=== PATIENT | male | born 1970 | race Hispanic/Latino ===

== ENCOUNTER 2018-07-10 03:35 | Inpatient (IN) | payer OTHER ==
[~2018-07-10] VITALS: Ht 167.6 cm; Wt 90.1 kg
[2018-07-10 04:00] VITALS: BP 123/84
[2018-07-10] MEDS ORDERED: ONDANSETRON HCL 4 MG/2 ML VIAL IV PRN (05:30)
[2018-07-10] MEDS ORDERED: NITROGLYCERIN 0.4 MG SL TAB SL PRN (05:30)
[2018-07-10] MEDS ORDERED: ACETAMINOPHEN 325 MG TAB PO PRN (05:30)
[2018-07-10] MEDS ORDERED: CLOP75TA14 PO (05:54)
[2018-07-10] MEDS ORDERED: ASPI-1197 PO (05:54)
[2018-07-10] MEDS ORDERED: LOVA40TA2 PO (05:54)
[2018-07-10] MEDS ORDERED: FURO-151 PO (05:54)
[2018-07-10] MEDS ORDERED: LISI2.5T2 PO (05:54)
[2018-07-10] MEDS ORDERED: INSU100I24 SQ (05:54)
[2018-07-10] MEDS ORDERED: CARV6.25 PO (05:54)
[2018-07-10 05:57] LABS: BASOPHILS % (AUTO) 0.5 % (0.0-5.0); EOSINOPHILS % (AUTO) 3.4 % (0.0-8.0); HEMATOCRIT 37.3 % (42-54); LYMPHOCYTES % (AUTO) 17.6 % (21.0-51.0); MEAN CORPUSCULAR HEMOGLOBIN 27.4 pg (27.0-33.0); MEAN CORPUSCULAR HGB CONC 32.6 g/dL (32.0-36.0); MEAN CORPUSCULAR VOLUME 83.9 fL (79-99); MONOCYTES % (AUTO) 9.6 % (3.0-13.0); NEUTROPHILS % (AUTO) 68.9 % (40.0-77.0); PLATELET COUNT (AUTO) 261 K/uL (130-400); RED BLOOD CELL COUNT(AUTO) 4.44 MIL/uL (4.50-6.20); WHITE BLOOD COUNT (AUTO) 8.6 K/uL (4.8-10.8)
[2018-07-10 06:10] LABS: INR 1.09 (0.85-1.15); PARTIAL THROMBOPLASTIN TIME 27.1 SEC (26.3-35.5); PROTHROMBIN TIME 11.4 SEC (9.6-11.6)
[2018-07-10] MEDS ORDERED: LIDOCAINE HCL-MPF 1% 2ML VIAL IVP PRN (06:15)
[2018-07-10] MEDS ORDERED: MAGNESIUM 2GM PREMIX 50ML 50 ML IV PRN (06:15)
[2018-07-10] MEDS ORDERED: POTASSIUM CHLORIDE 20MEQ/100ML 100 ML IV PRN (06:15)
[2018-07-10 06:22] LABS: ALBUMIN 2.8 g/dL (3.5-5.0); BILIRUBIN,TOTAL 0.7 mg/dL (0.2-1.0); CREATININE 1.7 mg/dL (0.5-1.5); MAGNESIUM 1.7 mg/dL (1.80-2.40); TROPONIN I 0.07 ng/mL (0.00-0.06)
[2018-07-10 06:29] LABS: HEMOGLOBIN A1C 8.4 % (4.0-6.0)
[2018-07-10] MEDS ORDERED: DEXTROSE 50%-WATER 50 ML DISP.SYRIN IV PRN (06:30)
[2018-07-10] MEDS ORDERED: GLUCAGON 1MG KIT 1 MG ML IM PRN (06:30)
[2018-07-10] MEDS ORDERED: MAGNESIUM 2GM PREMIX 50ML 50 ML IV ONE (06:36)
[2018-07-10 07:00] VITALS: BP 136/83
[2018-07-10] MEDS: IPRATROPIUM/ALBUTEROL SULFATE 3 ML SOLUTION IH SCH ×5 (07:11→22:03)
[2018-07-10] MEDS: INSULIN HUMULIN R 100 UNIT/ML 3ML SQ SCH ×4 (07:30→21:36)
[2018-07-10] MEDS: PANTOPRAZOLE SODIUM 40 MG TABLET.DR PO SCH (08:34)
[2018-07-10 11:00] VITALS: BP 114/75
[2018-07-10 16:00] VITALS: BP 114/79
[2018-07-10 19:48] VITALS: BP 116/79
[2018-07-10] MEDS: ATORVASTATIN CALCIUM 10 MG TABLET PO SCH (21:33)
[2018-07-10] MEDS: CARVEDILOL 6.25 MG TABLET PO SCH (21:34)
[2018-07-10] MEDS: ASPIRIN 81MG TAB.CHEW PO SCH (21:34)
[2018-07-10 23:39] VITALS: BP 117/78
[2018-07-11] MEDS: IPRATROPIUM/ALBUTEROL SULFATE 3 ML SOLUTION IH SCH ×6 (03:18→21:54)
[2018-07-11 04:13] VITALS: BP 119/89
[2018-07-11 07:00] VITALS: BP 125/85
[2018-07-11] MEDS: INSULIN HUMULIN R 100 UNIT/ML 3ML SQ SCH ×4 (07:07→21:00)
[2018-07-11] MEDS ORDERED: INSULIN DEGLUDEC 14 UNIT SQ SCH (09:00)
[2018-07-11] MEDS: FUROSEMIDE 40 MG TABLET PO SCH (09:17)
[2018-07-11] MEDS: PANTOPRAZOLE SODIUM 40 MG TABLET.DR PO SCH (09:17)
[2018-07-11] MEDS: CLOPIDOGREL BISULFATE 75 MG TAB PO SCH (09:17)
[2018-07-11] MEDS: LISINOPRIL 2.5 MG TABLET PO SCH (09:17)
[2018-07-11] MEDS: CARVEDILOL 6.25 MG TABLET PO SCH ×2 (09:20→21:00)
[2018-07-11 09:52] LABS: BASOPHILS % (AUTO) 0.7 % (0.0-5.0); EOSINOPHILS % (AUTO) 5.3 % (0.0-8.0); HEMATOCRIT 37.8 % (42-54); MEAN CORPUSCULAR HEMOGLOBIN 28.1 pg (27.0-33.0); MEAN CORPUSCULAR HGB CONC 33.2 g/dL (32.0-36.0); MEAN CORPUSCULAR VOLUME 84.5 fL (79-99); MONOCYTES % (AUTO) 9.6 % (3.0-13.0); NEUTROPHILS % (AUTO) 66.4 % (40.0-77.0); PLATELET COUNT (AUTO) 272 K/uL (130-400); RED BLOOD CELL COUNT(AUTO) 4.47 MIL/uL (4.50-6.20); RED CELL DISTRIBUTION WIDTH 14.3 % (11.0-15.5); WHITE BLOOD COUNT (AUTO) 8.4 K/uL (4.8-10.8)
[2018-07-11 10:03] LABS: ALBUMIN 2.7 g/dL (3.5-5.0); BILIRUBIN,TOTAL 0.6 mg/dL (0.2-1.0); CREATININE 1.5 mg/dL (0.5-1.5); POTASSIUM 3.9 mmol/L (3.5-5.1); TOTAL PROTEIN, SERUM 7.8 g/dL (6.0-8.3)
[2018-07-11 10:07] LABS: INR 1.04 (0.85-1.15); PARTIAL THROMBOPLASTIN TIME 26.7 SEC (26.3-35.5); PROTHROMBIN TIME 10.9 SEC (9.6-11.6)
[2018-07-11 11:00] VITALS: BP 128/91
[2018-07-11] MEDS ORDERED: SODIUM CHLORIDE 0.9% 500ML 500 ML IV SCH (12:21)
[2018-07-11 16:00] VITALS: BP 107/78
[2018-07-11 19:31] VITALS: BP 132/95
[2018-07-11] MEDS: ASPIRIN 81MG TAB.CHEW PO SCH (21:00)
[2018-07-11] MEDS: ATORVASTATIN CALCIUM 10 MG TABLET PO SCH (21:00)
[2018-07-11 23:27] VITALS: BP 100/65
[2018-07-12] VITALS (11 sets, daily range): BP systolic 102–129; BP diastolic 71–93
[2018-07-12] MEDS: IPRATROPIUM/ALBUTEROL SULFATE 3 ML SOLUTION IH SCH ×6 (02:31→22:00)
[2018-07-12 04:18] LABS: HEMATOCRIT 36.2 % (42-54); MEAN CORPUSCULAR HEMOGLOBIN 27.4 pg (27.0-33.0); MEAN CORPUSCULAR HGB CONC 32.5 g/dL (32.0-36.0); MEAN CORPUSCULAR VOLUME 84.1 fL (79-99); PLATELET COUNT (AUTO) 249 K/uL (130-400); RED CELL DISTRIBUTION WIDTH 14.2 % (11.0-15.5); WHITE BLOOD COUNT (AUTO) 8.4 K/uL (4.8-10.8)
[2018-07-12 04:22] LABS: CREATININE 1.6 mg/dL (0.5-1.5); POTASSIUM 3.8 mmol/L (3.5-5.1)
[2018-07-12 04:36] LABS: B-TYPE NATRIURETIC PEPTIDE 900 pg/mL (0-100)
[2018-07-12] MEDS: INSULIN HUMULIN R 100 UNIT/ML 3ML SQ SCH ×4 (05:25→20:29)
[2018-07-12] MEDS: CARVEDILOL 6.25 MG TABLET PO SCH ×2 (09:33→20:25)
[2018-07-12] MEDS: FUROSEMIDE 40 MG TABLET PO SCH (09:33)
[2018-07-12] MEDS: PANTOPRAZOLE SODIUM 40 MG TABLET.DR PO SCH (09:33)
[2018-07-12] MEDS: LISINOPRIL 2.5 MG TABLET PO SCH (09:33)
[2018-07-12] MEDS: CLOPIDOGREL BISULFATE 75 MG TAB PO SCH (10:02)
[2018-07-12] MEDS ORDERED: LIDOCAINE HCL 2% 20ML ONE (10:43)
[2018-07-12] MEDS ORDERED: BIVALIRUDIN 250 MG/VIAL IV ONE (10:43)
[2018-07-12] MEDS ORDERED: NITROGLYCERIN 5 MG/ML 10 ML VIAL IV ONE (10:43)
[2018-07-12] MEDS ORDERED: IOHEXOL-350 50ML VIAL IV ONE (10:44)
[2018-07-12] MEDS ORDERED: IOHEXOL 350 MG/ML 100ML INFUS..BTL IV ONE (10:44)
[2018-07-12] MEDS ORDERED: MIDAZOLAM HCL 1 MG/ML 2ML VIAL ONE (11:19)
[2018-07-12] MEDS: SODIUM CHLORIDE 0.9% 10 ML VIAL IVP SCH ×2 (12:15→20:28)
[2018-07-12] MEDS ORDERED: PHARMACY COMMUNICATION MISC SCH (12:15)
[2018-07-12] MEDS: ATORVASTATIN CALCIUM 10 MG TABLET PO SCH (20:24)
[2018-07-12] MEDS: ASPIRIN 81MG TAB.CHEW PO SCH (20:25)
[2018-07-13] MEDS: IPRATROPIUM/ALBUTEROL SULFATE 3 ML SOLUTION IH SCH ×3 (02:00→09:57)
[2018-07-13 03:56] VITALS: BP 109/78
[2018-07-13 04:10] LABS: BASOPHILS % (AUTO) 0.5 % (0.0-5.0); EOSINOPHILS % (AUTO) 6.7 % (0.0-8.0); HEMATOCRIT 36.7 % (42-54); LYMPHOCYTES % (AUTO) 21.9 % (21.0-51.0); MEAN CORPUSCULAR HEMOGLOBIN 27.3 pg (27.0-33.0); MEAN CORPUSCULAR HGB CONC 32.5 g/dL (32.0-36.0); MEAN CORPUSCULAR VOLUME 84.2 fL (79-99); MONOCYTES % (AUTO) 10.7 % (3.0-13.0); NEUTROPHILS % (AUTO) 60.2 % (40.0-77.0); PLATELET COUNT (AUTO) 270 K/uL (130-400); RED BLOOD CELL COUNT(AUTO) 4.36 MIL/uL (4.50-6.20); RED CELL DISTRIBUTION WIDTH 13.8 % (11.0-15.5); WHITE BLOOD COUNT (AUTO) 8.2 K/uL (4.8-10.8)
[2018-07-13 04:26] LABS: CREATININE 1.5 mg/dL (0.5-1.5); POTASSIUM 3.6 mmol/L (3.5-5.1)
[2018-07-13] MEDS: SODIUM CHLORIDE 0.9% 10 ML VIAL IVP SCH ×3 (04:51→20:54)
[2018-07-13] MEDS: INSULIN HUMULIN R 100 UNIT/ML 3ML SQ SCH ×4 (06:14→21:59)
[2018-07-13 07:00] VITALS: BP 103/71
[2018-07-13] MEDS: PANTOPRAZOLE SODIUM 40 MG TABLET.DR PO SCH (08:57)
[2018-07-13] MEDS: CARVEDILOL 6.25 MG TABLET PO SCH ×2 (08:57→20:55)
[2018-07-13 11:00] VITALS: BP 124/87
[2018-07-13] MEDS ORDERED: IPRATROPIUM/ALBUTEROL SULFATE 3 ML SOLUTION IH PRN (11:45)
[2018-07-13 16:00] VITALS: BP 96/86
[2018-07-13 19:26] VITALS: BP 114/80
[2018-07-13] MEDS: ASPIRIN 81MG TAB.CHEW PO SCH (20:55)
[2018-07-13] MEDS: ATORVASTATIN CALCIUM 10 MG TABLET PO SCH (20:55)
[2018-07-13 23:17] VITALS: BP 102/72
[2018-07-14 03:08] VITALS: BP 113/79
[2018-07-14] MEDS: SODIUM CHLORIDE 0.9% 10 ML VIAL IVP SCH ×3 (04:18→20:15)
[2018-07-14 04:24] LABS: BASOPHILS % (AUTO) 0.5 % (0.0-5.0); EOSINOPHILS % (AUTO) 5.7 % (0.0-8.0); HEMATOCRIT 36.3 % (42-54); LYMPHOCYTES % (AUTO) 22.5 % (21.0-51.0); MEAN CORPUSCULAR HGB CONC 32.1 g/dL (32.0-36.0); MEAN CORPUSCULAR VOLUME 84.2 fL (79-99); MONOCYTES % (AUTO) 11.3 % (3.0-13.0); PLATELET COUNT (AUTO) 243 K/uL (130-400); RED BLOOD CELL COUNT(AUTO) 4.31 MIL/uL (4.50-6.20); RED CELL DISTRIBUTION WIDTH 13.9 % (11.0-15.5); WHITE BLOOD COUNT (AUTO) 7.5 K/uL (4.8-10.8)
[2018-07-14 04:42] LABS: CREATININE 1.7 mg/dL (0.5-1.5); POTASSIUM 3.7 mmol/L (3.5-5.1)
[2018-07-14] MEDS: INSULIN HUMULIN R 100 UNIT/ML 3ML SQ SCH ×4 (06:00→21:00)
[2018-07-14 07:47] VITALS: BP 122/88
[2018-07-14] MEDS: PANTOPRAZOLE SODIUM 40 MG TABLET.DR PO SCH (10:23)
[2018-07-14] MEDS: FUROSEMIDE 40 MG TABLET PO SCH (10:23)
[2018-07-14] MEDS: LISINOPRIL 2.5 MG TABLET PO SCH (10:23)
[2018-07-14] MEDS: CARVEDILOL 6.25 MG TABLET PO SCH ×2 (10:23→20:47)
[2018-07-14 11:52] VITALS: BP 107/79
[2018-07-14 16:58] VITALS: BP 110/78
[2018-07-14 19:00] VITALS: BP 129/86
[2018-07-14] MEDS: ASPIRIN 81MG TAB.CHEW PO SCH (20:47)
[2018-07-14] MEDS: ATORVASTATIN CALCIUM 10 MG TABLET PO SCH (20:47)
[2018-07-14 23:00] VITALS: BP 95/61
[2018-07-15] VITALS (18 sets, daily range): BP systolic 95–177; BP diastolic 58–87
[2018-07-15 03:22] LABS: HEMATOCRIT 34.7 % (42-54); MEAN CORPUSCULAR HEMOGLOBIN 27.9 pg (27.0-33.0); MEAN CORPUSCULAR VOLUME 84.6 fL (79-99); PLATELET COUNT (AUTO) 231 K/uL (130-400); RED CELL DISTRIBUTION WIDTH 14.1 % (11.0-15.5); WHITE BLOOD COUNT (AUTO) 7.1 K/uL (4.8-10.8)
[2018-07-15 03:31] LABS: CREATININE 1.5 mg/dL (0.5-1.5); MAGNESIUM 1.8 mg/dL (1.80-2.40); POTASSIUM 3.5 mmol/L (3.5-5.1)
[2018-07-15] MEDS: SODIUM CHLORIDE 0.9% 10 ML VIAL IVP SCH ×3 (04:15→20:15)
[2018-07-15 06:27] LABS: INR 1.01 (0.85-1.15); PARTIAL THROMBOPLASTIN TIME 27.5 SEC (26.3-35.5); PROTHROMBIN TIME 10.6 SEC (9.6-11.6)
[2018-07-15] MEDS: INSULIN HUMULIN R 100 UNIT/ML 3ML SQ SCH ×2 (06:49→11:30)
[2018-07-15] MEDS ORDERED: CEFUROXIME SODIUM 1.5 GM VIAL IVP PRN (07:00)
[2018-07-15] MEDS: LISINOPRIL 2.5 MG TABLET PO SCH (09:00)
[2018-07-15] MEDS: FUROSEMIDE 40 MG TABLET PO SCH (09:00)
[2018-07-15] MEDS: PANTOPRAZOLE SODIUM 40 MG TABLET.DR PO SCH (09:00)
[2018-07-15] MEDS: CARVEDILOL 6.25 MG TABLET PO SCH (09:23)
[2018-07-15] MEDS ORDERED: SODIUM CHLORIDE 0.9% 1000ML 1,000 ML IV ONE ×2 (10:48→15:13)
[2018-07-15] MEDS ORDERED: CEFUROXIME SODIUM 1.5 GM VIAL ONE (10:49)
[2018-07-15] MEDS ORDERED: PAPAVERINE HCL 30 MG/ML 2ML VIAL ONE (11:39)
[2018-07-15] MEDS ORDERED: BACITRACIN 50,000 UNIT VIAL ONE (11:39)
[2018-07-15] MEDS ORDERED: AMIODARONE HCL 50 MG/ML 3 ML VIAL ONE (11:42)
[2018-07-15] MEDS ORDERED: SODIUM BICARB 50MEQ 50ML VIAL ONE ×2 (11:42→12:03)
[2018-07-15] MEDS ORDERED: NOREPINEPHRINE BITARTRATE 1 MG/1 ML ML IV ONE ×2 (11:43→12:03)
[2018-07-15] MEDS ORDERED: LIDOCAINE PF 2% 5ML ABBOJECT ONE ×2 (12:02→12:50)
[2018-07-15] MEDS ORDERED: HEPARIN SODIUM 1000UNIT/ML 10ML VIAL ONE ×2 (12:02→12:34)
[2018-07-15] MEDS ORDERED: PROTAMINE SULFATE 10 MG/ML 25ML VIAL IV ONE (12:02)
[2018-07-15] MEDS ORDERED: EPINEPHRINE 1 MG/ML AMPULE ONE (12:02)
[2018-07-15] MEDS ORDERED: ESMOLOL HCL 10 MG/ML 10 ML VIAL ONE (12:02)
[2018-07-15] MEDS ORDERED: MIDAZOLAM HCL 1 MG/ML 5ML VIAL ONE (12:03)
[2018-07-15] MEDS ORDERED: PROPOFOL 10 MG/ML 20ML VIAL IV ONE (12:03)
[2018-07-15] MEDS ORDERED: FENTANYL CITRATE PF 50 MCG/1 ML 20ML VIAL IJ ONE ×3 (12:03→15:04)
[2018-07-15] MEDS ORDERED: AMINOCAPROIC ACID 250 MG/ML 20 ML VIAL IV ONE (12:03)
[2018-07-15] MEDS ORDERED: ROCURONIUM 10MG/1ML SYR 10 MG/ML ML ONE ×4 (12:04→15:10)
[2018-07-15] MEDS ORDERED: KETAMINE 50MG/ML SYRINGE 50 MG/ML DISP.SYRIN IV ONE (12:04)
[2018-07-15 12:49] LABS: ABG HCO3 23.1 mmol/L (21.0-28.0); ABG OXYGEN SATURATION 99.2 % (95.0-99.0); ABG PCO2 32 mmHg (35-48)
[2018-07-15] MEDS ORDERED: VASOPRESSIN 20 UNITS/ML 1ML VIAL ONE (12:49)
[2018-07-15 13:30] LABS: ABG OXYGEN SATURATION 64.2 % (95.0-99.0); BASE EXCESS,VENOUS BLOOD GAS 2.4 (-2.0-3.0); HCO3,VENOUS BLOOD GAS 27.6 (21.0-28.0); PCO2,VENOUS BLOOD GAS 45 (35-48); PH,VENOUS BLOOD GAS 7.406 (7.350-7.450)
[2018-07-15 14:29] LABS: ABG BASE EXCESS 0.2 mmol/L (-2.0-3.0); ABG HCO3 23.1 mmol/L (21.0-28.0); ABG OXYGEN SATURATION 99.3 % (95.0-99.0); ABG PCO2 32 mmHg (35-48)
[2018-07-15] MEDS ORDERED: INSULIN HUMULIN R 100 UNIT/ML 3ML ONE (14:56)
[2018-07-15] MEDS ORDERED: ROCURONIUM BROMIDE 10MG/1ML 5ML VL ONE (15:09)
[2018-07-15] MEDS ORDERED: POTASSIUM PHOS 15 mMOL+NS250ML 250 ML IV PRN (15:15)
[2018-07-15] MEDS ORDERED: AMINOCAPROIC ACID 15,000 MG in SODIUM CHLORIDE 0.9% 250 ML IV SCH (15:15)
[2018-07-15] MEDS ORDERED: NOREPINEPHRINE 4MG/NS 250ML 250 ML IV PRN (15:15)
[2018-07-15] MEDS ORDERED: PROPOFOL 1000 MG/100 ML 100 ML IV PRN (15:15)
[2018-07-15] MEDS ORDERED: MORPHINE SULFATE 4 MG/1ML SYG IV PRN (15:15)
[2018-07-15] MEDS ORDERED: ACETAMINOPHEN 650 MG SUPPOSITORY RC PRN (15:15)
[2018-07-15] MEDS ORDERED: MAGNESIUM 2GM PREMIX 50ML 50 ML IV PRN (15:15)
[2018-07-15] MEDS ORDERED: ACETAMINOPHEN 325 MG TAB PO PRN (15:15)
[2018-07-15] MEDS ORDERED: SODIUM CHLORIDE 0.9% 250 ML IV PRN (15:15)
[2018-07-15] MEDS ORDERED: SODIUM CHLORIDE 0.9% 10 ML VIAL IVP PRN (15:15)
[2018-07-15] MEDS ORDERED: ALBUMIN (HUMAN) 5% 250 ML IV PRN (15:15)
[2018-07-15] MEDS ORDERED: GLUCAGON 1MG KIT 1 MG ML IM PRN (15:15)
[2018-07-15] MEDS ORDERED: SODIUM CHLORIDE 0.9% 1000ML 1,000 ML IV SCH (15:15)
[2018-07-15] MEDS ORDERED: INSULIN REGULAR, HUMAN 3ML 100 UNIT in SODIUM CHLORIDE 0.9% 99 ML IV SCH ×2 (15:15)
[2018-07-15] MEDS ORDERED: ONDANSETRON HCL 4 MG/2 ML VIAL IV PRN (15:15)
[2018-07-15] MEDS ORDERED: NITROGLYCERIN 50 MG/D5% WATER 250 BOT IV SCH (15:15)
[2018-07-15] MEDS ORDERED: DEXTROSE 50%-WATER 50 ML DISP.SYRIN IV PRN (15:15)
[2018-07-15] MEDS ORDERED: EPINEPHRINE 8 MG in SODIUM CHLORIDE 0.9% 250 ML IV PRN (15:15)
[2018-07-15] MEDS ORDERED: CALCIUM GLUCONATE 1 GM in SODIUM CHLORIDE 0.9% 50 ML IV PRN (15:15)
[2018-07-15 15:23] LABS: ABG BASE EXCESS 0.4 mmol/L (-2.0-3.0); ABG HCO3 22.9 mmol/L (21.0-28.0); ABG OXYGEN SATURATION 98.9 % (95.0-99.0); ABG PCO2 30 mmHg (35-48)
[2018-07-15 16:27] LABS: BASE EXCESS,VENOUS BLOOD GAS -1.5 (-2.0-3.0); HCO3,VENOUS BLOOD GAS 22.3 (21.0-28.0); PCO2,VENOUS BLOOD GAS 34 (35-48); PH,VENOUS BLOOD GAS 7.429 (7.350-7.450)
[2018-07-15 16:45] LABS: ABG BASE EXCESS -0.5 mmol/L (-2.0-3.0); ABG HCO3 23.2 mmol/L (21.0-28.0); ABG PCO2 35 mmHg (35-48)
[2018-07-15 16:45] LABS: HEMATOCRIT 32.6 % (42-54); MEAN CORPUSCULAR HEMOGLOBIN 27.8 pg (27.0-33.0); MEAN CORPUSCULAR HGB CONC 33.1 g/dL (32.0-36.0); PLATELET COUNT (AUTO) 240 K/uL (130-400); RED BLOOD CELL COUNT(AUTO) 3.88 MIL/uL (4.50-6.20); RED CELL DISTRIBUTION WIDTH 14.1 % (11.0-15.5); WHITE BLOOD COUNT (AUTO) 18.3 K/uL (4.8-10.8)
[2018-07-15] MEDS: POTASSIUM CHLORIDE 20MEQ/100ML 100 ML IV PRN ×3 (16:53→20:34)
[2018-07-15] MEDS: SODIUM BICARB 50MEQ 50ML VIAL IV PRN ×3 (16:55→23:18)
[2018-07-15 16:57] LABS: CREATININE 1.4 mg/dL (0.5-1.5); MAGNESIUM 1.5 mg/dL (1.80-2.40); PHOSPHORUS 1.9 mg/dL (2.5-4.9)
[2018-07-15] MEDS: CLINDAMYCIN 900 MG/D5% WATER 50 ML IV SCH (17:18)
[2018-07-15 18:11] LABS: ABG BASE EXCESS -0.5 mmol/L (-2.0-3.0); ABG HCO3 21.4 mmol/L (21.0-28.0); ABG OXYGEN SATURATION 89.3 % (95.0-99.0); ABG PCO2 29 mmHg (35-48)
[2018-07-15 19:26] LABS: ABG BASE EXCESS 4.5 mmol/L (-2.0-3.0); ABG PCO2 33 mmHg (35-48)
[2018-07-15] MEDS: CARVEDILOL 3.125 MG TABLET PO SCH (19:58)
[2018-07-15] MEDS: ATORVASTATIN CALCIUM 40 MG TABLET PO SCH (19:59)
[2018-07-15 21:04] LABS: ABG BASE EXCESS 2.7 mmol/L (-2.0-3.0); ABG HCO3 24.7 mmol/L (21.0-28.0); ABG OXYGEN SATURATION 98.2 % (95.0-99.0); ABG PCO2 31 mmHg (35-48)
[2018-07-15] MEDS: SODIUM CHLORIDE 0.9% 500ML 500 ML IV SCH (22:08)
[2018-07-15 23:07] LABS: ABG BASE EXCESS -0.4 mmol/L (-2.0-3.0); ABG HCO3 23.7 mmol/L (21.0-28.0); ABG OXYGEN SATURATION 95.4 % (95.0-99.0); ABG PCO2 37 mmHg (35-48)
[2018-07-15] MEDS: IPRATROPIUM/ALBUTEROL SULFATE 3 ML SOLUTION IH SCH (23:13)
[2018-07-15] MEDS: MORPHINE SULFATE 2 MG/ML 1ML SYG IV PRN (23:18)
[2018-07-16] VITALS (24 sets, daily range): BP systolic 94–149; BP diastolic 60–98
[2018-07-16] MEDS: CEFUROXIME SODIUM 1.5 GM VIAL IVP SCH ×2 (00:30→10:53)
[2018-07-16 00:44] LABS: ABG BASE EXCESS 1.1 mmol/L (-2.0-3.0); ABG HCO3 25.4 mmol/L (21.0-28.0); ABG OXYGEN SATURATION 93.4 % (95.0-99.0); ABG PCO2 39 mmHg (35-48)
[2018-07-16] MEDS ORDERED: FUROSEMIDE 10 MG/ML 2ML VIAL ONE (00:52)
[2018-07-16] MEDS: CLINDAMYCIN 900 MG/D5% WATER 50 ML IV SCH ×3 (00:54→16:58)
[2018-07-16] MEDS: FUROSEMIDE 10 MG/ML 2ML VIAL IV SCH ×3 (01:00→21:10)
[2018-07-16 01:07] LABS: MAGNESIUM 1.8 mg/dL (1.80-2.40); POTASSIUM 4.1 mmol/L (3.5-5.1)
[2018-07-16] MEDS: MORPHINE SULFATE 2 MG/ML 1ML SYG IV PRN ×3 (02:15→07:14)
[2018-07-16] MEDS: SODIUM CHLORIDE 0.9% 10 ML VIAL IVP SCH ×3 (03:47→20:15)
[2018-07-16 04:13] LABS: HEMATOCRIT 34.2 % (42-54); MEAN CORPUSCULAR HEMOGLOBIN 27.1 pg (27.0-33.0); MEAN CORPUSCULAR HGB CONC 32.2 g/dL (32.0-36.0); MEAN CORPUSCULAR VOLUME 84.1 fL (79-99); PLATELET COUNT (AUTO) 199 K/uL (130-400); RED BLOOD CELL COUNT(AUTO) 4.06 MIL/uL (4.50-6.20); WHITE BLOOD COUNT (AUTO) 16.7 K/uL (4.8-10.8)
[2018-07-16 04:24] LABS: INR 1.09 (0.85-1.15); PROTHROMBIN TIME 11.4 SEC (9.6-11.6)
[2018-07-16 04:26] LABS: CREATININE 1.5 mg/dL (0.5-1.5); MAGNESIUM 2.2 mg/dL (1.80-2.40); PHOSPHORUS 4.7 mg/dL (2.5-4.9)
[2018-07-16 05:14] LABS: ABG BASE EXCESS 0.4 mmol/L (-2.0-3.0); ABG HCO3 23.8 mmol/L (21.0-28.0); ABG OXYGEN SATURATION 98.7 % (95.0-99.0); ABG PCO2 35 mmHg (35-48)
[2018-07-16] MEDS: SODIUM CHLORIDE 0.9% 500ML 500 ML IV SCH (05:15)
[2018-07-16] MEDS: IPRATROPIUM/ALBUTEROL SULFATE 3 ML SOLUTION IH SCH ×4 (06:55→23:12)
[2018-07-16] MEDS: CARVEDILOL 3.125 MG TABLET PO SCH (07:38)
[2018-07-16] MEDS ORDERED: PHARMACY COMMUNICATION MISC SCH ×2 (07:45→19:30)
[2018-07-16] MEDS: ASPIRIN 325MG EC TAB 325 MG TABLET.DR PO SCH (07:56)
[2018-07-16 08:21] LABS: ABG BASE EXCESS -0.2 mmol/L (-2.0-3.0); ABG HCO3 23.9 mmol/L (21.0-28.0); ABG OXYGEN SATURATION 91.1 % (95.0-99.0); ABG PCO2 38 mmHg (35-48)
[2018-07-16] MEDS ORDERED: PANTOPRAZOLE 40 MG/VIAL IV SCH (09:00)
[2018-07-16] MEDS: PANTOPRAZOLE SODIUM 40 MG TABLET.DR PO SCH (09:00)
[2018-07-16 11:36] LABS: ABG BASE EXCESS 4.4 mmol/L (-2.0-3.0); ABG HCO3 27.8 mmol/L (21.0-28.0); ABG OXYGEN SATURATION 95.4 % (95.0-99.0); ABG PCO2 37 mmHg (35-48)
[2018-07-16] MEDS: TRAMADOL HCL 50 MG TABLET PO PRN ×3 (14:05→18:58)
[2018-07-16 15:21] LABS: CREATININE 1.6 mg/dL (0.5-1.5)
[2018-07-16] MEDS ORDERED: ATORVASTATIN CALCIUM 20 MG TABLET PO SCH (21:00)
[2018-07-16] MEDS: ATORVASTATIN CALCIUM 40 MG TABLET PO SCH (21:10)
[2018-07-17] VITALS (22 sets, daily range): BP systolic 99–150; BP diastolic 63–97
[2018-07-17] MEDS: CEFUROXIME SODIUM 1.5 GM VIAL IVP SCH (00:29)
[2018-07-17] MEDS: FUROSEMIDE 10 MG/ML 2ML VIAL IV SCH ×4 (01:00→21:19)
[2018-07-17] MEDS: TRAMADOL HCL 50 MG TABLET PO PRN (02:24)
[2018-07-17] MEDS: CLINDAMYCIN 900 MG/D5% WATER 50 ML IV SCH ×3 (02:24→17:52)
[2018-07-17 04:06] LABS: ABG BASE EXCESS -0.7 mmol/L (-2.0-3.0); ABG HCO3 23.3 mmol/L (21.0-28.0); ABG OXYGEN SATURATION 94.5 % (95.0-99.0); ABG PCO2 37 mmHg (35-48)
[2018-07-17 04:11] LABS: HEMATOCRIT 32.9 % (42-54); MEAN CORPUSCULAR HEMOGLOBIN 27.4 pg (27.0-33.0); MEAN CORPUSCULAR HGB CONC 32.4 g/dL (32.0-36.0); MEAN CORPUSCULAR VOLUME 84.6 fL (79-99); PLATELET COUNT (AUTO) 189 K/uL (130-400); RED BLOOD CELL COUNT(AUTO) 3.89 MIL/uL (4.50-6.20); WHITE BLOOD COUNT (AUTO) 15.9 K/uL (4.8-10.8)
[2018-07-17] MEDS: SODIUM CHLORIDE 0.9% 10 ML VIAL IVP SCH ×3 (04:15→21:19)
[2018-07-17 04:17] LABS: CREATININE 1.7 mg/dL (0.5-1.5); MAGNESIUM 2.2 mg/dL (1.80-2.40); POTASSIUM 3.8 mmol/L (3.5-5.1)
[2018-07-17] MEDS: IPRATROPIUM/ALBUTEROL SULFATE 3 ML SOLUTION IH SCH ×4 (07:38→23:23)
[2018-07-17] MEDS ORDERED: CARVEDILOL 3.125 MG TABLET PO SCH ×2 (09:00→11:15)
[2018-07-17] MEDS: ASPIRIN 325MG EC TAB 325 MG TABLET.DR PO SCH (09:40)
[2018-07-17] MEDS: PANTOPRAZOLE SODIUM 40 MG TABLET.DR PO SCH (09:40)
[2018-07-17] MEDS: POTASSIUM CHLORIDE 20MEQ/100ML 100 ML IV PRN (09:56)
[2018-07-17] MEDS: INSULIN HUMULIN R 100 UNIT/ML 3ML SQ SCH ×3 (14:59→21:31)
[2018-07-17] MEDS ORDERED: INSULIN HUMULIN R 100 UNIT/ML 3ML SQ SCH (16:30)
[2018-07-17] MEDS: ATORVASTATIN CALCIUM 40 MG TABLET PO SCH (21:23)
[2018-07-17] MEDS: CARVEDILOL 6.25 MG TABLET PO SCH (21:23)
[2018-07-17] MEDS: ENOXAPARIN SODIUM 30 MG/0.3 ML SQ SCH (21:32)
[2018-07-17] MEDS: LOSARTAN 50 MG TABLET PO SCH (22:00)
[2018-07-18 00:19] VITALS: BP 105/71
[2018-07-18] MEDS: CLINDAMYCIN 900 MG/D5% WATER 50 ML IV SCH ×4 (01:00→16:46)
[2018-07-18 03:30] VITALS: BP 105/68
[2018-07-18 04:02] LABS: MEAN CORPUSCULAR HEMOGLOBIN 26.9 pg (27.0-33.0); MEAN CORPUSCULAR HGB CONC 31.8 g/dL (32.0-36.0); MEAN CORPUSCULAR VOLUME 84.6 fL (79-99); PLATELET COUNT (AUTO) 161 K/uL (130-400); RED BLOOD CELL COUNT(AUTO) 3.55 MIL/uL (4.50-6.20); RED CELL DISTRIBUTION WIDTH 14.1 % (11.0-15.5); WHITE BLOOD COUNT (AUTO) 13.3 K/uL (4.8-10.8)
[2018-07-18 04:07] LABS: CREATININE 1.5 mg/dL (0.5-1.5); POTASSIUM 3.8 mmol/L (3.5-5.1)
[2018-07-18] MEDS: SODIUM CHLORIDE 0.9% 10 ML VIAL IVP SCH ×3 (04:15→21:42)
[2018-07-18] MEDS: INSULIN HUMULIN R 100 UNIT/ML 3ML SQ SCH ×4 (06:51→21:00)
[2018-07-18 07:00] VITALS: BP 106/74
[2018-07-18] MEDS: IPRATROPIUM/ALBUTEROL SULFATE 3 ML SOLUTION IH SCH ×4 (07:20→19:05)
[2018-07-18] MEDS: PANTOPRAZOLE SODIUM 40 MG TABLET.DR PO SCH (08:53)
[2018-07-18] MEDS: ASPIRIN 325MG EC TAB 325 MG TABLET.DR PO SCH (08:53)
[2018-07-18] MEDS: CARVEDILOL 6.25 MG TABLET PO SCH (08:54)
[2018-07-18] MEDS: FUROSEMIDE 10 MG/ML 2ML VIAL IV SCH ×2 (08:55→21:40)
[2018-07-18] MEDS: ENOXAPARIN SODIUM 30 MG/0.3 ML SQ SCH (09:02)
[2018-07-18] MEDS: TRAMADOL HCL 50 MG TABLET PO PRN ×2 (10:37→15:57)
[2018-07-18 11:00] VITALS: BP 98/64
[2018-07-18 11:08] LABS: % IRON SATURATION 4.9 % (30-44)
[2018-07-18 16:00] VITALS: BP 102/73
[2018-07-18] MEDS ORDERED: LIDOCAINE HCL-MPF 1% 2ML VIAL IVP PRN (16:45)
[2018-07-18] MEDS ORDERED: POTASSIUM CHLORIDE 10% ELIXIR 20 MEQ/15 ML UDCUP PO PRN (16:45)
[2018-07-18] MEDS: POTASSIUM CHLORIDE 20 MEQ ERTAB PO PRN (16:52)
[2018-07-18 19:26] VITALS: BP 92/64
[2018-07-18] MEDS ORDERED: POTASSIUM CHLORIDE 10 MEQ/TAB.SA PO ONE ×2 (21:34→21:35)
[2018-07-18] MEDS: ATORVASTATIN CALCIUM 40 MG TABLET PO SCH (21:40)
[2018-07-18] MEDS: LOSARTAN 50 MG TABLET PO SCH (21:45)
[2018-07-18] MEDS ORDERED: IRON SUCROSE COMPLEX 100 MG in SODIUM CHLORIDE 0.9% 100 ML IV SCH (23:30)
[2018-07-19 00:19] VITALS: BP 107/65
[2018-07-19] MEDS: IPRATROPIUM/ALBUTEROL SULFATE 3 ML SOLUTION IH SCH ×5 (00:19→23:08)
[2018-07-19] MEDS: CLINDAMYCIN 900 MG/D5% WATER 50 ML IV SCH ×3 (00:25→16:36)
[2018-07-19] MEDS: TRAMADOL HCL 50 MG TABLET PO PRN ×3 (00:26→17:45)
[2018-07-19] MEDS: CARVEDILOL 6.25 MG TABLET PO SCH ×3 (00:32→20:34)
[2018-07-19 03:47] VITALS: BP 96/69
[2018-07-19 04:10] LABS: HEMATOCRIT 27.4 % (42-54); MEAN CORPUSCULAR HEMOGLOBIN 27.9 pg (27.0-33.0); MEAN CORPUSCULAR HGB CONC 33.2 g/dL (32.0-36.0); MEAN CORPUSCULAR VOLUME 84.1 fL (79-99); PLATELET COUNT (AUTO) 191 K/uL (130-400); RED BLOOD CELL COUNT(AUTO) 3.26 MIL/uL (4.50-6.20); WHITE BLOOD COUNT (AUTO) 8.7 K/uL (4.8-10.8)
[2018-07-19 04:18] LABS: CREATININE 1.5 mg/dL (0.5-1.5); PHOSPHORUS 3.2 mg/dL (2.5-4.9); POTASSIUM 3.7 mmol/L (3.5-5.1)
[2018-07-19 04:49] LABS: B-TYPE NATRIURETIC PEPTIDE 1510 pg/mL (0-100)
[2018-07-19] MEDS: SODIUM CHLORIDE 0.9% 10 ML VIAL IVP SCH ×3 (06:01→20:39)
[2018-07-19] MEDS ORDERED: POTASSIUM CHLORIDE 10 MEQ/TAB.SA PO ONE ×2 (06:02)
[2018-07-19] MEDS: INSULIN HUMULIN R 100 UNIT/ML 3ML SQ SCH ×4 (06:36→21:27)
[2018-07-19 07:00] VITALS: BP 113/80
[2018-07-19] MEDS: IRON SUCROSE COMPLEX 100 MG in SODIUM CHLORIDE 0.9% 50 ML IV SCH (07:45)
[2018-07-19] MEDS: EPOETIN ALFA 10,000 UNIT/ML VIAL SQ SCH ×2 (07:45→23:30)
[2018-07-19] MEDS: PANTOPRAZOLE SODIUM 40 MG TABLET.DR PO SCH (09:02)
[2018-07-19] MEDS: ENOXAPARIN SODIUM 30 MG/0.3 ML SQ SCH (09:02)
[2018-07-19] MEDS: ASPIRIN 325MG EC TAB 325 MG TABLET.DR PO SCH (09:02)
[2018-07-19] MEDS: FUROSEMIDE 20 MG TABLET PO SCH ×2 (09:03→16:36)
[2018-07-19 11:00] VITALS: BP 122/75
[2018-07-19] MEDS ORDERED: COMPOUND IV MISC 1 EACH IVSOLN MISC PRN (11:45)
[2018-07-19] MEDS: POTASSIUM CHLORIDE 20 MEQ ERTAB PO PRN (12:16)
[2018-07-19 16:21] VITALS: BP 110/77
[2018-07-19 19:57] VITALS: BP 116/77
[2018-07-19] MEDS: ATORVASTATIN CALCIUM 40 MG TABLET PO SCH (20:33)
[2018-07-19] MEDS: LOSARTAN 50 MG TABLET PO SCH (20:35)
[2018-07-20] VITALS (7 sets, daily range): BP systolic 107–137; BP diastolic 67–85
[2018-07-20] MEDS: CLINDAMYCIN 900 MG/D5% WATER 50 ML IV SCH ×3 (00:39→16:49)
[2018-07-20 04:58] LABS: HEMATOCRIT 30.1 % (42-54); MEAN CORPUSCULAR HEMOGLOBIN 27.1 pg (27.0-33.0); MEAN CORPUSCULAR HGB CONC 32.3 g/dL (32.0-36.0); MEAN CORPUSCULAR VOLUME 83.9 fL (79-99); PLATELET COUNT (AUTO) 219 K/uL (130-400); RED BLOOD CELL COUNT(AUTO) 3.59 MIL/uL (4.50-6.20); RED CELL DISTRIBUTION WIDTH 13.8 % (11.0-15.5); WHITE BLOOD COUNT (AUTO) 7.6 K/uL (4.8-10.8)
[2018-07-20 05:02] LABS: CREATININE 1.3 mg/dL (0.5-1.5); POTASSIUM 3.6 mmol/L (3.5-5.1)
[2018-07-20 05:19] LABS: EOSINOPHILS % (MANUAL) 5 % (1-6); LYMPHOCYTES % (MANUAL) 18 % (22-44); MAN.DIFF COMMENT-IMPRESSION MANUAL DIFFERENTIAL; MONOCYTES % (MANUAL) 10 % (2-9); SEGMENTED NEUTROPHILS % 67 % (40-70)
[2018-07-20] MEDS: IPRATROPIUM/ALBUTEROL SULFATE 3 ML SOLUTION IH SCH ×4 (06:06→23:13)
[2018-07-20] MEDS: INSULIN HUMULIN R 100 UNIT/ML 3ML SQ SCH ×4 (06:58→21:31)
[2018-07-20] MEDS: ASPIRIN 325MG EC TAB 325 MG TABLET.DR PO SCH (07:54)
[2018-07-20] MEDS: ENOXAPARIN SODIUM 30 MG/0.3 ML SQ SCH (07:54)
[2018-07-20] MEDS: FUROSEMIDE 20 MG TABLET PO SCH ×2 (07:54→16:49)
[2018-07-20] MEDS: PANTOPRAZOLE SODIUM 40 MG TABLET.DR PO SCH (07:54)
[2018-07-20] MEDS: CARVEDILOL 6.25 MG TABLET PO SCH ×2 (07:55→21:30)
[2018-07-20] MEDS: IRON SUCROSE COMPLEX 100 MG in SODIUM CHLORIDE 0.9% 50 ML IV SCH (07:56)
[2018-07-20] MEDS: SODIUM CHLORIDE 0.9% 10 ML VIAL IVP SCH ×2 (12:15→20:15)
[2018-07-20] MEDS ORDERED: MAGNESIUM CITRATE 296 ML SOLUTION PO SCH (14:45)
[2018-07-20] MEDS: POTASSIUM CHLORIDE 20 MEQ ERTAB PO PRN ×2 (16:57→21:29)
[2018-07-20] MEDS: LOSARTAN 50 MG TABLET PO SCH (21:30)
[2018-07-20] MEDS: ATORVASTATIN CALCIUM 40 MG TABLET PO SCH (21:30)
[2018-07-20] MEDS: TRAMADOL HCL 50 MG TABLET PO PRN (21:42)
[2018-07-20] MEDS: EPOETIN ALFA 10,000 UNIT/ML VIAL SQ SCH (23:30)
[2018-07-21] MEDS: CLINDAMYCIN 900 MG/D5% WATER 50 ML IV SCH ×2 (01:20→07:44)
[2018-07-21 03:00] VITALS: BP 115/76
[2018-07-21] MEDS: SODIUM CHLORIDE 0.9% 10 ML VIAL IVP SCH ×2 (03:26→11:53)
[2018-07-21] MEDS: IPRATROPIUM/ALBUTEROL SULFATE 3 ML SOLUTION IH SCH ×2 (06:24→11:07)
[2018-07-21] MEDS: INSULIN HUMULIN R 100 UNIT/ML 3ML SQ SCH ×3 (06:29→16:01)
[2018-07-21 07:20] VITALS: BP 127/84
[2018-07-21] MEDS ORDERED: LOSA50TA2 PO (07:20)
[2018-07-21] MEDS ORDERED: ATOR40TA69 PO (07:20)
[2018-07-21] MEDS: PANTOPRAZOLE SODIUM 40 MG TABLET.DR PO SCH (08:02)
[2018-07-21] MEDS: FUROSEMIDE 20 MG TABLET PO SCH ×2 (08:02→16:02)
[2018-07-21] MEDS: CARVEDILOL 6.25 MG TABLET PO SCH (08:02)
[2018-07-21] MEDS: ASPIRIN 325MG EC TAB 325 MG TABLET.DR PO SCH (08:02)
[2018-07-21] MEDS: ENOXAPARIN SODIUM 30 MG/0.3 ML SQ SCH (08:03)
[2018-07-21 11:30] VITALS: BP 115/77
[2018-07-21] MEDS ORDERED: LOSA25TA2 PO (15:06)
[2018-07-21 16:00] VITALS: BP 116/56
== END 2018-07-21 17:20 | disposition home or self-care (01) | DRG 233 ==
LOC: 2DH 03:35 → 2CV 07-15 10:57 → 2BH 07-16 19:55 → 2CH 07-17 17:29 → 2AH 07-19 15:45
PROVIDERS: ADMIT Hospitalist; ATTEND Hospitalist
PROC: 4A023N7 Measurement of Cardiac Sampling and Pressure, Left Heart, Percutaneous Approach (ICD-10-PCS; principal; 2018-07-12)
PROC: B2111ZZ Fluoroscopy of Multiple Coronary Arteries using Low Osmolar Contrast (ICD-10-PCS; 2018-07-12)
PROC: B2151ZZ Fluoroscopy of Left Heart using Low Osmolar Contrast (ICD-10-PCS; 2018-07-12)
PROC: B3121ZZ Fluoroscopy of Left Subclavian Artery using Low Osmolar Contrast (ICD-10-PCS; 2018-07-12)
PROC: B41F1ZZ Fluoroscopy of Right Lower Extremity Arteries using Low Osmolar Contrast (ICD-10-PCS; 2018-07-12)
PROC: 021009W Bypass Coronary Artery, One Artery from Aorta with Autologous Venous Tissue, Open Approach (ICD-10-PCS; 2018-07-15)
PROC: 06BQ4ZZ Excision of Left Saphenous Vein, Percutaneous Endoscopic Approach (ICD-10-PCS; 2018-07-15)
PROC: 02100Z9 Bypass Coronary Artery, One Artery from Left Internal Mammary, Open Approach (ICD-10-PCS; 2018-07-15 12:05)
DX: I25.119 Atherosclerotic heart disease of native coronary artery with unspecified angina pectoris (principal); I21.4 Non-ST elevation (NSTEMI) myocardial infarction; I50.43 Acute on chronic combined systolic (congestive) and diastolic (congestive) heart failure; E44.0 Moderate protein-calorie malnutrition; I13.0 Hypertensive heart and chronic kidney disease with heart failure and stage 1 through stage 4 chronic kidney disease, or unspecified chronic kidney disease; J98.11 Atelectasis; I25.5 Ischemic cardiomyopathy; E87.6 Hypokalemia; E11.65 Type 2 diabetes mellitus with hyperglycemia; E11.21 Type 2 diabetes mellitus with diabetic nephropathy; E11.22 Type 2 diabetes mellitus with diabetic chronic kidney disease; N18.3 Chronic kidney disease, stage 3 (moderate); D50.9 Iron deficiency anemia, unspecified; D72.829 Elevated white blood cell count, unspecified; E78.2 Mixed hyperlipidemia; I08.0 Rheumatic disorders of both mitral and aortic valves; J45.909 Unspecified asthma, uncomplicated; I25.2 Old myocardial infarction; Z79.82 Long term (current) use of aspirin; Z79.899 Other long term (current) drug therapy; Z83.3 Family history of diabetes mellitus; Z82.49 Family history of ischemic heart disease and other diseases of the circulatory system
CPT/HCPCS: 36415; 71045; 80048; 80053; 80061; 82435; 82550; 82803; 82947; 82948; 83036; 83540; 83550; 83605; 83735; 83874; 83880; 84100; 84132; 84295; 84484; 85018; 85025; 85027; 85347; 85610; 85730; 86850; 86900; 86901; 86922; 93005; 93306; 93458; 93880; 94002; 94003; 94010; 94150; 94640; 94664; 94667; 94668; 97039; 99156; 99157; A4218; A4344; A4357; A7048; C1894; C9113; J0171; J0282; J0583; J0697; J0885; J1644; J1650; J1756; J1815; J1940; J2001; J2250; J2270; J2440; J2704; J2720; J3010; J3475; J3480; J3490; J7030; J7040; Q9967

== ENCOUNTER 2018-08-03 03:10 | Emergency (ER) | payer OTHER ==
[~2018-08-03 03:10] MED LIST: ASPI-1197 PO; ATOR40TA69 PO; CARV6.25 PO; FURO-151 PO; INSU100I24 SQ; LOSA25TA2 PO
[2018-08-03 03:55] LABS: BASOPHILS % (AUTO) 0.7 % (0.0-5.0); EOSINOPHILS % (AUTO) 7.4 % (0.0-8.0); HEMATOCRIT 36.1 % (42-54); LYMPHOCYTES % (AUTO) 20.8 % (21.0-51.0); MEAN CORPUSCULAR HEMOGLOBIN 26.4 pg (27.0-33.0); MEAN CORPUSCULAR VOLUME 82.5 fL (79-99); MONOCYTES % (AUTO) 10.1 % (3.0-13.0); PLATELET COUNT (AUTO) 372 K/uL (130-400); RED BLOOD CELL COUNT(AUTO) 4.38 MIL/uL (4.50-6.20); RED CELL DISTRIBUTION WIDTH 14.8 % (11.0-15.5)
[2018-08-03 04:02] LABS: CREATININE 1.4 mg/dL (0.5-1.5); POTASSIUM 3.7 mmol/L (3.5-5.1)
[2018-08-03 04:06] LABS: ALBUMIN 2.7 g/dL (3.5-5.0); BILIRUBIN,TOTAL 0.5 mg/dL (0.2-1.0); TOTAL PROTEIN, SERUM 8.8 g/dL (6.0-8.3)
[2018-08-03 04:32] LABS: B-TYPE NATRIURETIC PEPTIDE 1280 pg/mL (0-100)
[2018-08-03] MEDS ORDERED: IOHEXOL 350 MG/ML 100ML INFUS..BTL IV ONE (04:34)
[2018-08-03] MEDS ORDERED: SODIUM CHLORIDE 0.9% 500ML 500 ML IV ONE (04:45)
[2018-08-03] MEDS ORDERED: FUROSEMIDE 10 MG/ML 4ML VIAL ONE (05:44)
== END 2018-08-03 06:52 | disposition home or self-care (01) ==
LOC: EDH 03:10
DX: I11.0 Hypertensive heart disease with heart failure (principal); I50.20 Unspecified systolic (congestive) heart failure; R07.89 Other chest pain; E11.9 Type 2 diabetes mellitus without complications; E78.5 Hyperlipidemia, unspecified; Z79.899 Other long term (current) drug therapy; Z98.890 Other specified postprocedural states; Z87.891 Personal history of nicotine dependence
CPT/HCPCS: 36415; 71046; 71275; 80053; 82550; 83880; 84484 ×2; 85025; 85378; 93005 ×2; 96374; 99284; J1940; J7040; Q9967

== ENCOUNTER 2018-10-02 16:21 | Inpatient (IN) | payer OTHER ==
[~2018-10-02] VITALS: Ht 170.2 cm; Wt 84.0 kg
[2018-10-02 17:20] LABS: BASOPHILS % (AUTO) 0.6 % (0.0-5.0); EOSINOPHILS % (AUTO) 5.4 % (0.0-8.0); HEMATOCRIT 42.4 % (42-54); LYMPHOCYTES % (AUTO) 22.1 % (21.0-51.0); MEAN CORPUSCULAR HEMOGLOBIN 25.9 pg (27.0-33.0); MEAN CORPUSCULAR HGB CONC 32.6 g/dL (32.0-36.0); MEAN CORPUSCULAR VOLUME 79.4 fL (79-99); MONOCYTES % (AUTO) 8.8 % (3.0-13.0); NEUTROPHILS % (AUTO) 63.1 % (40.0-77.0); PLATELET COUNT (AUTO) 254 K/uL (130-400); RED BLOOD CELL COUNT(AUTO) 5.34 MIL/uL (4.50-6.20); RED CELL DISTRIBUTION WIDTH 16.1 % (11.0-15.5); WHITE BLOOD COUNT (AUTO) 8.4 K/uL (4.8-10.8)
[2018-10-02 17:31] LABS: INR 1.02 (0.85-1.15); PARTIAL THROMBOPLASTIN TIME 28.7 SEC (26.3-35.5); PROTHROMBIN TIME 10.7 SEC (9.6-11.6)
[2018-10-02 17:33] LABS: CREATININE 1.3 mg/dL (0.5-1.5); POTASSIUM 3.8 mmol/L (3.5-5.1)
[2018-10-02] MEDS ORDERED: ASPIRIN 325 MG TABLET ONE (17:42)
[2018-10-02] MEDS ORDERED: NITROGLYCERIN 0.4 MG SL TAB SL ONE (17:42)
[2018-10-02 17:48] LABS: B-TYPE NATRIURETIC PEPTIDE 377 pg/mL (0-100)
[2018-10-02 17:55] LABS: ALBUMIN 3.2 g/dL (3.5-5.0); BILIRUBIN,TOTAL 0.6 mg/dL (0.2-1.0); TOTAL PROTEIN, SERUM 8.4 g/dL (6.0-8.3)
[2018-10-02] MEDS ORDERED: FUROSEMIDE 10 MG/ML 4ML VIAL ONE (19:18)
[2018-10-02] MEDS ORDERED: ACETAMINOPHEN 325 MG TAB PO PRN (19:30)
[2018-10-02] MEDS ORDERED: GLUCAGON 1MG KIT 1 MG ML IM PRN (19:30)
[2018-10-02] MEDS ORDERED: ONDANSETRON HCL 4 MG/2 ML VIAL IV PRN (19:30)
[2018-10-02] MEDS ORDERED: NITROGLYCERIN 0.4 MG SL TAB SL PRN (19:30)
[2018-10-02] MEDS ORDERED: DEXTROSE 50%-WATER 50 ML DISP.SYRIN IV PRN (19:30)
[2018-10-02] MEDS ORDERED: ATORVASTATIN CALCIUM 20 MG TABLET ONE (19:32)
[2018-10-02] MEDS ORDERED: CARVEDILOL 3.125 MG TABLET PO ONE (19:39)
[2018-10-02 19:44] LABS: HEMOGLOBIN A1C 8.6 % (4.0-6.0)
[2018-10-02] MEDS: FAMOTIDINE 20MG TAB 20 MG TAB PO SCH (21:00)
[2018-10-02] MEDS: INSULIN HUMULIN R 100 UNIT/ML 3ML SQ SCH (21:00)
[2018-10-02] MEDS: METOPROLOL TARTRATE 25 MG TAB PO SCH (21:00)
[2018-10-02] MEDS ORDERED: POTASSIUM CHLORIDE 20MEQ/100ML 100 ML IV PRN (22:00)
[2018-10-02] MEDS ORDERED: POTASSIUM CHLORIDE 10% ELIXIR 20 MEQ/15 ML UDCUP PO PRN (22:00)
[2018-10-02] MEDS ORDERED: POTASSIUM CHLORIDE 20 MEQ ERTAB PO PRN (22:00)
[2018-10-02] MEDS ORDERED: MAGNESIUM 2GM PREMIX 50ML 50 ML IV PRN (22:00)
[2018-10-02] MEDS ORDERED: LIDOCAINE HCL-MPF 1% 2ML VIAL IVP PRN (22:00)
[2018-10-02 23:43] LABS: APPEARANCE,URINE Clear (CLEAR); BILIRUBIN,URINE Negative (NEGATIVE); COLOR,URINE Yellow (YELLOW); GLUCOSE, URINE (UA) Negative (NEGATIVE); KETONES,URINE Negative (NEGATIVE); LEUKOCYTE ESTERASE ,URINE Negative (NEGATIVE); NITRATE,URINE Negative (NEGATIVE); OCCULT BLOOD,URINE Trace (NEGATIVE); PH,URINE 5.5 (5.0-8.0); PROTEIN,URINE Negative (NEGATIVE); UROBILINOGEN,URINE 0.2 mg/dL (0.2-1.0)
[2018-10-02 23:51] LABS: AMPHET/METH SCREEN,URINE NEGATIVE (NEGATIVE); BARBITURATE SCREEN, URINE NEGATIVE (NEGATIVE); BENZODIAZEPINES SCREEN,URINE NEGATIVE (NEGATIVE); CANNABINOID SCREEN,URINE NEGATIVE (NEGATIVE); COCAINE SCREEN,URINE NEGATIVE (NEGATIVE); OPIATE SCREEN,URINE NEGATIVE (NEGATIVE); PHENCYCLIDINE SCREEN,URINE NEGATIVE (NEGATIVE)
[2018-10-02 23:58] LABS: BACTERIA,URINE None Seen /HPF (None Seen); RBC,URINE 0-1 /HPF (0-1); SQUAMOUS EPITHELIAL CELL,UR Rare /HPF (0-2); WBC,URINE None Seen /HPF (0-1)
[2018-10-03 00:07] LABS: CREATINE KINASE, TOTAL 113 U/L (21-232); MYOGLOBIN 49 ng/mL (10-92); TROPONIN I < 0.04 ng/mL (0.00-0.06)
[2018-10-03 05:08] LABS: BASOPHILS % (AUTO) 0.3 % (0.0-5.0); EOSINOPHILS % (AUTO) 4.2 % (0.0-8.0); HEMATOCRIT 37.3 % (42-54); LYMPHOCYTES % (AUTO) 20.1 % (21.0-51.0); MEAN CORPUSCULAR HEMOGLOBIN 26.3 pg (27.0-33.0); MEAN CORPUSCULAR HGB CONC 32.8 g/dL (32.0-36.0); MEAN CORPUSCULAR VOLUME 80.3 fL (79-99); MONOCYTES % (AUTO) 6.2 % (3.0-13.0); NEUTROPHILS % (AUTO) 69.2 % (40.0-77.0); PLATELET COUNT (AUTO) 207 K/uL (130-400); RED BLOOD CELL COUNT(AUTO) 4.64 MIL/uL (4.50-6.20); RED CELL DISTRIBUTION WIDTH 16.3 % (11.0-15.5); WHITE BLOOD COUNT (AUTO) 9.2 K/uL (4.8-10.8)
[2018-10-03 05:20] LABS: CREATININE 1.1 mg/dL (0.5-1.5); POTASSIUM 3.2 mmol/L (3.5-5.1)
[2018-10-03 05:24] LABS: ALBUMIN 2.6 g/dL (3.5-5.0); BILIRUBIN,TOTAL 0.7 mg/dL (0.2-1.0); MAGNESIUM 1.6 mg/dL (1.80-2.40)
[2018-10-03 05:38] LABS: CREATINE KINASE, TOTAL 90 U/L (21-232); MYOGLOBIN 54 ng/mL (10-92); TROPONIN I < 0.04 ng/mL (0.00-0.06)
[2018-10-03] MEDS: INSULIN HUMULIN R 100 UNIT/ML 3ML SQ SCH ×3 (07:30→17:00)
[2018-10-03] MEDS ORDERED: ENOXAPARIN SODIUM 30 MG/0.3 ML SQ ONE (08:30)
[2018-10-03] MEDS ORDERED: ASPIRIN 325 MG TABLET ONE (08:30)
[2018-10-03] MEDS ORDERED: ENOXAPARIN SODIUM 30 MG/0.3 ML SQ SCH (09:00)
[2018-10-03] MEDS: METOPROLOL TARTRATE 25 MG TAB PO SCH (09:00)
[2018-10-03] MEDS ORDERED: ASPIRIN 325 MG TABLET PO SCH (09:00)
[2018-10-03] MEDS: FAMOTIDINE 20MG TAB 20 MG TAB PO SCH (09:00)
[2018-10-03 11:50] VITALS: BP 140/88
[2018-10-03 12:09] LABS: CREATINE KINASE, TOTAL 92 U/L (21-232); MYOGLOBIN 61 ng/mL (10-92); TROPONIN I < 0.04 ng/mL (0.00-0.06)
--- NOTE | 2018-10-03 12:15 | NUR ---
NOTE PATIENT CAME IN THROUGH ER WITH C/O CHEST PAIN. REPORTS HIS BLOOD PRESSURE WAS 180'S/100'S AND HE STARTED EXPERIENCING LEFT CHEST PAIN AND RADIATE TO HIS BACK, DESCRIBED IT MORE LIKE TINGLING. HE HAS H/O CARDIAC PROBLEMS WITH 2 VESSEL CABG JUNE LAST YEAR. HE HAS CARDIOLOGY CONSULT AND HE WILL BE SEEN BY DR ROMERO WHILE HERE THOUGH HIS CARDIAC ENZYMES WERE NEGATIVE BUT THERE WAS SOME MINOR CHANGES IN EKGS ACCORDING TO ER NURSES AND DOCTOR.
--- NOTE | 2018-10-03 15:19 | NUR ---
NOTE CALLED [facility] AND PATIENT WILL BE SEEN BY DR QUEEN. PATIENT INFORMED.
[2018-10-03 16:00] VITALS: BP 127/84
[2018-10-03] MEDS ORDERED: EMPA10TA PO (16:00)
[2018-10-03] MEDS ORDERED: LOSA50TA64 PO (16:00)
[2018-10-03] MEDS ORDERED: ATOR40TA71 PO (16:00)
[2018-10-03] MEDS ORDERED: CLOP75TA32 PO (16:38)
[2018-10-03] MEDS ORDERED: SPIR25TA6 PO (16:47)
--- NOTE | 2018-10-03 18:30 | NUR ---
NOTE DISCHARGE INSTRUCTIONS GIVEN TO HIM. STABLE NO DISTRESS UPON DISCHARGE. NO DISTRESS OR CHEST PAIN. TELEMETRY UNEVENTFUL. DISCHARGED PER CARDIOLOGY AND DR ZEEPDA CALLED AND ORDERS RECEIVED OVER TELEPHONE.
[2018-10-04] MEDS ORDERED: CLOPIDOGREL BISULFATE 75 MG TAB PO SCH (09:00)
== END 2018-10-03 18:56 | disposition home or self-care (01) | DRG 92 ==
LOC: EDH 16:21 → EDHIP 19:59 → 4CH 10-03 11:57
PROVIDERS: ADMIT Internal Medicine; ATTEND Internal Medicine
DX: R25.2 Cramp and spasm (principal); I13.0 Hypertensive heart and chronic kidney disease with heart failure and stage 1 through stage 4 chronic kidney disease, or unspecified chronic kidney disease; I50.42 Chronic combined systolic (congestive) and diastolic (congestive) heart failure; M79.18 Myalgia, other site; E11.22 Type 2 diabetes mellitus with diabetic chronic kidney disease; E78.5 Hyperlipidemia, unspecified; I25.5 Ischemic cardiomyopathy; I25.10 Atherosclerotic heart disease of native coronary artery without angina pectoris; N18.3 Chronic kidney disease, stage 3 (moderate); J45.909 Unspecified asthma, uncomplicated; I34.0 Nonrheumatic mitral (valve) insufficiency; I25.2 Old myocardial infarction; Z95.1 Presence of aortocoronary bypass graft; Z87.442 Personal history of urinary calculi; Z79.899 Other long term (current) drug therapy; Z83.3 Family history of diabetes mellitus; Z82.49 Family history of ischemic heart disease and other diseases of the circulatory system
CPT/HCPCS: 36415; 71045; 80053; 80061; 80305; 81001; 82550; 82948; 83036; 83735; 83874; 83880; 84484; 85025; 85610; 85730; 93005; G0378; J1650; J1815; J1940

== ENCOUNTER → 2018-10-08 | Outpatient (CLI) | payer OTHER, SELFPAY ==
[~2018-10-08] MED LIST changes: -ATOR40TA69 PO; +ATOR40TA71 PO; +CLOP75TA32 PO; +EMPA10TA PO; -LOSA25TA2 PO; +LOSA50TA64 PO; +SPIR25TA6 PO
== END | disposition home or self-care (01) ==
LOC: SHCH 07:46
PROVIDERS: ATTEND Internal Medicine Cardiovascular Disease
DX: I08.0 Rheumatic disorders of both mitral and aortic valves (principal); I25.10 Atherosclerotic heart disease of native coronary artery without angina pectoris; I10 Essential (primary) hypertension; Z95.1 Presence of aortocoronary bypass graft
CPT/HCPCS: 93306

== ENCOUNTER 2022-07-23 01:38 | Emergency (ER) | payer OTHER, SELFPAY ==
[~2022-07-23] VITALS: Ht 170.2 cm; Wt 88.5 kg
[2022-07-23 02:50] LABS: APPEARANCE,URINE CLEAR (CLEAR); BILIRUBIN,URINE NEGATIVE (NEGATIVE); COLOR,URINE COLORLESS (YELLOW); GLUCOSE, URINE (UA) 150 mg/dL (NEGATIVE); KETONES,URINE NEGATIVE (NEGATIVE); LEUKOCYTE ESTERASE ,URINE NEGATIVE Leu/uL (NEGATIVE); NITRATE,URINE NEGATIVE (NEGATIVE); OCCULT BLOOD,URINE NEGATIVE (NEGATIVE); PROTEIN,URINE NEGATIVE (NEGATIVE); UROBILINOGEN,URINE 0.2 mg/dL (0.2-1.0)
[2022-07-23 03:16] LABS: BASOPHILS % (AUTO) 0.2 % (0.0-5.0); EOSINOPHILS % (AUTO) 4.2 % (0.0-8.0); HEMATOCRIT 47.7 % (42-54); LYMPHOCYTES % (AUTO) 21.2 % (21.0-51.0); MEAN CORPUSCULAR HEMOGLOBIN 28.5 pg (27.0-33.0); MEAN CORPUSCULAR HGB CONC 33.5 g/dL (32.0-36.0); MEAN CORPUSCULAR VOLUME 84.9 fL (79-99); MONOCYTES % (AUTO) 9.4 % (3.0-13.0); NEUTROPHILS % (AUTO) 64.6 % (40.0-77.0); PLATELET COUNT (AUTO) 190 K/uL (130-400); RED BLOOD CELL COUNT(AUTO) 5.62 MIL/uL (4.50-6.20); RED CELL DISTRIBUTION WIDTH 13.4 % (11.0-15.5); WHITE BLOOD COUNT (AUTO) 8.5 K/uL (4.8-10.8)
[2022-07-23 03:17] LABS: CREATININE 1.2 mg/dL (0.5-1.5); POTASSIUM 3.8 mmol/L (3.5-5.1)
[2022-07-23 03:23] VITALS: BP 155/91
[2022-07-23 03:23] LABS: ALBUMIN 3.8 g/dL (3.5-5.0); TOTAL PROTEIN, SERUM 8.5 g/dL (6.0-8.3)
== END 2022-07-23 03:49 | disposition home or self-care (01) ==
LOC: EDH 01:38
DX: F41.9 Anxiety disorder, unspecified (principal); E11.9 Type 2 diabetes mellitus without complications; E78.00 Pure hypercholesterolemia, unspecified; I10 Essential (primary) hypertension; Z95.1 Presence of aortocoronary bypass graft; Z79.82 Long term (current) use of aspirin; Z79.899 Other long term (current) drug therapy; Z98.890 Other specified postprocedural states
CPT/HCPCS: 36415; 80053; 81003; 84484; 85025

== ENCOUNTER 2023-08-09 18:02 | Emergency (ER) | payer OTHER ==
[~2023-08-09] VITALS: Ht 170.2 cm; Wt 86.2 kg
[2023-08-09 18:37] LABS: HEMATOCRIT 46.2 % (42-54); MEAN CORPUSCULAR HEMOGLOBIN 28.5 pg (27.0-33.0); MEAN CORPUSCULAR HGB CONC 33.1 g/dL (32.0-36.0); MEAN CORPUSCULAR VOLUME 86.2 fL (79-99); RED BLOOD CELL COUNT(AUTO) 5.36 MIL/uL (4.50-6.20); RED CELL DISTRIBUTION WIDTH 14.2 % (11.0-15.5); WHITE BLOOD COUNT (AUTO) 14.6 K/uL (4.8-10.8)
[2023-08-09 18:44] LABS: RAPID GROUP A STREP negative (NEGATIVE)
[2023-08-09 18:48] LABS: SARS-CoV-2, RNA, NAAT NEGATIVE SARS CoV-2 (NEGATIVE)
[2023-08-09 18:49] LABS: CREATININE 1.6 mg/dL (0.5-1.5); POTASSIUM 4.2 mmol/L (3.5-5.1)
[2023-08-09 18:53] LABS: ALBUMIN 2.9 g/dL (3.5-5.0); TOTAL PROTEIN, SERUM 8.6 g/dL (6.0-8.3)
[2023-08-09 18:55] LABS: INFLUENZA TYPE A Negative For Type A (NEGATIVE); INFLUENZA TYPE B Negative For Type B (NEGATIVE)
[2023-08-09] MEDS ORDERED: IOHEXOL 350 MG/ML 100ML INFUS..BTL IV ONE (21:13)
[2023-08-09] MEDS ORDERED: OMEP40CA21 PO (22:11)
[2023-08-09 22:13] VITALS: BP 146/81; PULSE 94; RESP 16; O2SAT 95
== END 2023-08-09 22:21 | disposition home or self-care (01) ==
LOC: EDH 18:02
DX: I25.10 Atherosclerotic heart disease of native coronary artery without angina pectoris (principal); K21.9 Gastro-esophageal reflux disease without esophagitis; I10 Essential (primary) hypertension; E78.00 Pure hypercholesterolemia, unspecified; E11.9 Type 2 diabetes mellitus without complications; Z79.4 Long term (current) use of insulin; Z79.899 Other long term (current) drug therapy; Z20.822 Contact with and (suspected) exposure to COVID-19
CPT/HCPCS: 99285; 71270; 71045; 87635; 82550; 84484 ×2; 80053; 83880; 85027; 85378; 87880; 87804 ×2; 36415; 93005 ×2; C9803; Q9967